=== PATIENT | female | born 1995 | race African-American/Black ===

== ENCOUNTER 2018-05-05 07:22 | Inpatient (IN) ==
[2018-05-05] MEDS ORDERED: ONDANSETRON 4 MG/2 ML VIAL IV PRN (07:49)
[2018-05-05] MEDS ORDERED: BUTORPHANOL 2 MG/ML VIAL IV PRN (07:51)
[2018-05-05] MEDS ORDERED: MEPERIDINE 50 MG/1 ML VIAL IV PRN (07:51)
[2018-05-05] MEDS ORDERED: diphenhydrAMINE 50 MG/1 ML VIAL IV PRN ×2 (07:52)
[2018-05-05] MEDS ORDERED: PROMETHAZINE 25 MG/1 ML VIAL IM ONE (07:52)
[2018-05-05] MEDS ORDERED: NALOXONE 0.4 MG/ML VIAL IV PRN (07:52)
[2018-05-05] MEDS ORDERED: hydrOXYzine HCL 25 MG/1 ML VIAL IM PRN (07:52)
[2018-05-05] MEDS ORDERED: ePHEDrine 50 MG/ML AMP IV PRN (07:52)
[2018-05-05] MEDS ORDERED: fentaNYL 2 MCG/ROPIV 0.2% EPID 100 ML EPIDURAL SCH (08:00)
[2018-05-05] MEDS ORDERED: LACTATED RINGERS 1,000 ML IV SCH ×2 (08:00)
[2018-05-05 08:06] LABS: Basophils % 0.2 % (0.0-0.8); Eosinophils % 0.1 % (0.00-10.9); Hematocrit 29.4 VOL% (35.7-47.0); Hemoglobin 10.1 GM/DL (12.0-16.0); Immature Granulocytes % 0.6 %; Immature Granulocytes Absolute 0.06 #; Lymphocytes # 1.7 10*3/uL (1.4-4.0); Lymphocytes % 15.9 % (21.3-54.2); Mean Corpuscular HGB Conc 34.4 GM/DL (32-36); Mean Corpuscular Hemoglobin 27 PG (27-34); Mean Platelet Volume 11.8 FL (9.6-12.0); Monocytes # 0.8 10*3/uL (0.11-0.8); Monocytes % 7.6 % (1.7-12.7); Neutrophils # 8.1 10*3/uL (1.4-7.4); Neutrophils % 75.6 % (38.7-73.9); Platelet Count 153 T/CUMM (130-400); Red Blood Count 3.72 MC/CUMM (3.8-5.5); Red Cell Distribution Width 13.9 % (9.3-17.3); White Blood Count 10.6 T/CUMM (4-12)
[2018-05-05] MEDS ORDERED: miSOPROStol 200 MCG TABLET ONE (08:14)
[2018-05-05] MEDS ORDERED: METHYLERGONOVINE 0.2 MG/1 ML AMP ONE (08:15)
[2018-05-05] MEDS ORDERED: LIDOCAINE 1% 50 ML VIAL ONE (08:33)
[2018-05-05] MEDS: OXYTOCIN/LR 20 UNIT/1,000 ML BAG IV SCH ×2 (08:38→10:54)
[2018-05-05] MEDS ORDERED: MEASLES/MUMPS/RUBELLA VACCINE 0.5 ML VIAL SUBCUT ONE (09:01)
[2018-05-05] MEDS ORDERED: RHO(D) IMMUNE GLOBULIN 300 MCG SYRINGE IM ONE (09:01)
[2018-05-05] MEDS ORDERED: ACETAMINOPHEN 325 MG TABLET PO PRN (09:01)
[2018-05-05] MEDS ORDERED: BISACODYL 10 MG SUPP RECTAL PRN (09:01)
[2018-05-05] MEDS ORDERED: LANOLIN 50% CREAM 0.3 OZ TUBE TOP PRN (09:01)
[2018-05-05] MEDS ORDERED: HYDROCORTISONE 2.5% RECTAL CREAM 30 GM TUBE TOP PRN (09:01)
[2018-05-05] MEDS ORDERED: DIPH/TET/ACEL PERT BOOSTER VACCINE 0.5 ML VIAL IM ONE (09:01)
[2018-05-05] MEDS ORDERED: BENZOCAINE 20%/MENTHOL 0.5% SPRAY 56 GM CAN TOP PRN (09:01)
[2018-05-05] MEDS ORDERED: oxyCODONE/ACETAMINOPHEN 5-325 MG TABLET PO PRN ×2 (09:01)
[2018-05-05] MEDS ORDERED: WITCH HAZEL PADS 100/JAR TOP PRN (09:01)
[2018-05-05] MEDS: DOCUSATE SODIUM 100 MG CAPSULE PO SCH (20:55)
[2018-05-05] MEDS: IBUPROFEN 800 MG TABLET PO PRN (22:12)
[2018-05-06 05:24] LABS: Basophils % 0.1 % (0.0-0.8); Eosinophils % 0.3 % (0.00-10.9); Hematocrit 24.2 VOL% (35.7-47.0); Hemoglobin 8.5 GM/DL (12.0-16.0); Immature Granulocytes % 0.7 %; Immature Granulocytes Absolute 0.07 #; Lymphocytes # 1.7 10*3/uL (1.4-4.0); Lymphocytes % 16.3 % (21.3-54.2); Mean Corpuscular HGB Conc 35.1 GM/DL (32-36); Mean Corpuscular Hemoglobin 27 PG (27-34); Mean Corpuscular Volume 78.1 FL (87-102); Mean Platelet Volume 12.4 FL (9.6-12.0); Monocytes # 0.9 10*3/uL (0.11-0.8); Monocytes % 8.2 % (1.7-12.7); Neutrophils % 74.4 % (38.7-73.9); Platelet Count 166 T/CUMM (130-400); Red Cell Distribution Width 13.8 % (9.3-17.3); White Blood Count 10.7 T/CUMM (4-12)
[2018-05-06] MEDS: DOCUSATE SODIUM 100 MG CAPSULE PO SCH ×2 (08:11→21:25)
[2018-05-06] MEDS: IBUPROFEN 800 MG TABLET PO PRN (23:48)
[2018-05-07 07:13] VITALS: BP 128/75
[2018-05-07] MEDS: DOCUSATE SODIUM 100 MG CAPSULE PO SCH (10:20)
== END 2018-05-07 12:10 | disposition home or self-care (01) | DRG 560 ==
LOC: N.LDOUT 07:22 → N.LD 07:24 → N.OB 12:50
PROVIDERS: ADMIT Obstetrics & Gynecology; ATTEND Obstetrics & Gynecology